=== PATIENT | male | born 1965 | race Caucasian/White ===

== ENCOUNTER 2021-09-02 20:37 | Emergency (ER) | payer MEDICAID, OTHER ==
[~2021-09-02] VITALS: Ht 172.7 cm; Wt 77.1 kg
[~2021-09-02 20:37] MED LIST: ASPI-610 PO
--- NOTE | 2021-09-02 21:24 | NUR ---
pt placed in room 4a states he is sucidial. states he wants to take benadryl and sleeping pills. notified housekeeping aid, she states there is no sitter available.
--- NOTE | 2021-09-02 22:06 | NUR ---
Dr. El at bedside for MSE.
[2021-09-02] MEDS ORDERED: THIAMINE HCL 100 MG TABLET PO ONE (22:15)
[2021-09-02 22:20] LABS: *BILIRUBIN,URIN NEGATIVE (NEGATIVE); *BLOOD, URINE NEGATIVE (NEGATIVE); *CLARITY,URINE CLEAR (CLEAR); *COLOR,URINE YELLOW (YELLOW); *KETONES,URINE NEGATIVE (NEGATIVE); *UROBILINOGEN,URINE 0.2 E.U./dl (NORMAL); LEUKOCYTE ESTERASE ,URINE NEGATIVE (NEGATIVE); NITRITE, URINE NEGATIVE (NEGATIVE); PH,URINE 5.5 (5.0-8.0); UGLUCOSE NEGATIVE (NEGATIVE)
[2021-09-02 22:20] LABS: HEMATOCRIT 43.5 % (36.7-47.1); MEAN CORPUSCULAR HEMOGLOBIN 30.2 uug (23.8-33.4); MEAN CORPUSCULAR VOLUME 87.3 fL (73.0-96.2); PLATELET COUNT (AUTO) 402 K/uL (152-348)
[2021-09-02 22:23] LABS: CARBON DIOXIDE 23 mmol/L (21-32); CHLORIDE 101 mmol/L (98-107); CREATININE 0.9 mg/dL (0.6-1.3); GLUCOSE 102 mg/dL (74-106); POTASSIUM 3.9 mmol/L (3.5-5.1); UREA NITROGEN, BLOOD 13 mg/dL (7-18)
[2021-09-02 22:35] LABS: ALANINE AMINOTRANSFERASE 71 U/L (16-63); ALKALINE PHOSPHATASE 88 U/L (50-136); ASPARTATE AMINOTRANSFERASE 50 U/L (15-37); BILIRUBIN,DIRECT 0.1 mg/dL (0.0-0.2); BILIRUBIN,TOTAL 0.2 mg/dL (0.2-1.0); TOTAL PROTEIN, SERUM 7.9 g/dL (6.4-8.2)
[2021-09-02 22:36] LABS: ACETAMINOPHEN < 2.0 ug/mL (10-30)
[2021-09-02] MEDS ORDERED: THIAMINE HCL 100 MG TABLET ONE (23:03)
--- NOTE | 2021-09-02 23:15 | NUR ---
pt a/o cooperative denies pain.
--- NOTE | 2021-09-02 23:31 | NUR ---
call to [facility], states she will call back in 30 minutes after blood alcohol level is available.
[2021-09-02 23:41] LABS: ETHANOL 214 MG/DL (0-0)
[2021-09-02 23:43] LABS: *AMPHETAMINE, URINE NEGATIVE (NEGATIVE); *CANNABINOID, URINE NEGATIVE (NEGATIVE); *COCCAINE, URINE NEGATIVE (NEGATIVE); *OPIATE, URINE NEGATIVE (NEGATIVE); *PHENCYCLIDINE SCREEN,URINE NEGATIVE (NEGATIVE)
--- NOTE | 2021-09-03 00:03 | NUR ---
Notified [facility] crisis nurse of blood alcohol level.
[2021-09-03] MEDS ORDERED: CHLORDIAZEPOXIDE HCL 25 MG CAPSULE PO ONE ×2 (00:45→02:00)
--- NOTE | 2021-09-03 01:25 | NUR ---
[employer] [employer] team member checked for librium, none is available. Dr. El is aware.
[2021-09-03] MEDS ORDERED: CHLORDIAZEPOXIDE HCL 5 MG CAPSULE ONE (01:48)
--- NOTE | 2021-09-03 06:14 | NUR ---
pt has been closely observed, has slept most of the night. Spoke with [facility] nurse she states she will be here in 5 minutes.
--- NOTE | 2021-09-03 06:39 | NUR ---
[facility] nurse at bedside.
[2021-09-03] MEDS ORDERED: OLANZAPINE 5 MG TABLET PO ONE (07:00)
[2021-09-03] MEDS ORDERED: diphenhydrAMINE 25 MG CAP PO ONE ×2 (07:00→08:04)
[2021-09-03] MEDS ORDERED: OLANZAPINE 5 MG TABLET ONE (08:04)
--- NOTE | 2021-09-03 08:13 | NUR ---
Pt ambulated to restroom and received breakfast tray upon return to bed. Pt aware of plan to possibly admit to [facility], but will require updated lab results. Pt agrees.
[2021-09-03 08:39] LABS: ETHANOL < 3 MG/DL (0-0)
--- NOTE | 2021-09-03 10:09 | NUR ---
Jade from [facility] admitting, received updates labs, now requesting documentation of pt being medically cleared. Continues to work toward admitting pt. Pt aware of plan. Continues to state being comfortable and denies any pain at this time.
--- NOTE | 2021-09-03 13:02 | NUR ---
Accepting is Dr. Negrete for [facility]. # for report is [phone]. ETA for knot picker cloth is 3070. Information provided by
--- NOTE | 2021-09-03 13:11 | NUR ---
Report give to Zaheer stephenson [facility].
--- NOTE | 2021-09-03 14:52 | NUR ---
Pt continues to rest without complaint of pain or discomfort, awaiting transport to [facility].
--- NOTE | 2021-09-03 15:10 | NUR ---
Pt ambulated out accompanied by transport personnel, out to the vehicle, with his belongings in hand. Pt stable at time of D/C.
[2021-09-03 15:19] VITALS: BP 134/88
== END 2021-09-03 15:10 | disposition short-term general hospital (02) ==
LOC: ER 20:46
DX: F10.129 Alcohol abuse with intoxication, unspecified (principal); R45.851 Suicidal ideations; R74.01 Elevation of levels of liver transaminase levels; J45.909 Unspecified asthma, uncomplicated; F17.290 Nicotine dependence, other tobacco product, uncomplicated; Z88.8 Allergy status to other drugs, medicaments and biological substances; Z59.00 Homelessness unspecified; Z79.82 Long term (current) use of aspirin; Z20.822 Contact with and (suspected) exposure to COVID-19; Y90.0 Blood alcohol level of less than 20 mg/100 ml
CPT/HCPCS: 36415 ×2; 80048; 80076; 80299; 80307; 80320 ×2; 81003; 83735; 85025; 87426; 99285; Q0163; A4663; G0480; J8499

== ENCOUNTER 2023-06-04 01:56 | Emergency (ER) | payer MEDICAID ==
[~2023-06-04] VITALS: Ht 175.3 cm; Wt 83.9 kg
[2023-06-04] MEDS ORDERED: ASPIRIN 81 MG TAB.CHEW PO ONE (02:15)
[2023-06-04] MEDS ORDERED: buPROPion XL 150 MG TAB.SR.24H PO SCH (02:15)
[2023-06-04] MEDS ORDERED: NITROGLYCERIN OINT 1 GM PACKET TP ONE ×2 (02:15→02:25)
[2023-06-04] MEDS ORDERED: ASPIRIN 81 MG TAB.CHEW ONE (02:25)
[2023-06-04 02:26] LABS: BASOPHILS % (AUTO) 0.7 % (0.0-2.0); EOSINOPHILS # (AUTO) 0.3 K/uL (0.0-0.7); EOSINOPHILS % (AUTO) 6.4 % (0.0-7.0); LYMPHOCYTES # (AUTO) 1.8 K/uL (0.8-4.8); LYMPHOCYTES % (AUTO) 35.1 % (20.5-51.5); MEAN CORPUSCULAR HEMOGLOBIN 31.4 uug (23.8-33.4); MEAN CORPUSCULAR HGB CONC 35 g/dL (32.5-36.3); MEAN CORPUSCULAR VOLUME 90.7 fL (73.0-96.2); MONOCYTES # (AUTO) 0.2 K/uL (0.1-1.30); MONOCYTES % (AUTO) 4.7 % (0.0-11.0); NEUTROPHILS # (AUTO) 2.8 K/uL (1.8-8.9); NEUTROPHILS % (AUTO) 53.1 % (38.5-71.5); PLATELET COUNT (AUTO) 335 K/uL (152-348); RED CELL DISTRIBUTION WIDTH 14.2 % (12.1-16.2); WHITE BLOOD COUNT (AUTO) 5.2 K/uL (3.6-10.2)
[2023-06-04 02:30] VITALS: BP 143/78
[2023-06-04 02:35] LABS: DIFFERENTIAL COMMENT 1
[2023-06-04 02:40] LABS: CALCIUM 9.1 mg/dL (8.5-10.1); CARBON DIOXIDE 26 mmol/L (21-32); CHLORIDE 103 mmol/L (98-107); CREATININE 0.9 mg/dL (0.6-1.3); GLUCOSE 108 mg/dL (74-106); POTASSIUM 4.1 mmol/L (3.5-5.1); SODIUM SERUM 140 mmol/L (136-145); UREA NITROGEN, BLOOD 12 mg/dL (7-18)
[2023-06-04 02:52] LABS: ETHANOL 236 MG/DL (0-10)
[2023-06-04 02:53] LABS: ALANINE AMINOTRANSFERASE 107 U/L (16-63); ALBUMIN 3.8 g/dL (3.4-5.0); ALKALINE PHOSPHATASE 68 U/L (50-136); ASPARTATE AMINOTRANSFERASE 76 U/L (15-37); BILIRUBIN,DIRECT 0.1 mg/dL (0.0-0.2); BILIRUBIN,TOTAL 0.3 mg/dL (0.2-1.0); NT-PRO BNP 7 pg/mL (0-125); TOTAL PROTEIN, SERUM 8.4 g/dL (6.4-8.2)
[2023-06-04 03:31] LABS: ACETAMINOPHEN < 2.0 ug/mL (10-30)
[2023-06-04 03:46] LABS: *AMPHETAMINE, URINE NEGATIVE (NEGATIVE); *BARBITURATE, URINE NEGATIVE (NEGATIVE); *BENZODIAZEPINE, URINE NEGATIVE (NEGATIVE); *CANNABINOID, URINE NEGATIVE (NEGATIVE); *COCCAINE, URINE NEGATIVE (NEGATIVE); *OPIATE, URINE NEGATIVE (NEGATIVE); *PHENCYCLIDINE SCREEN,URINE NEGATIVE (NEGATIVE); FENTANYL, URINE NEGATIVE (NEGATIVE)
[2023-06-04 07:26] VITALS: O2SAT 98
[2023-06-04 09:50] LABS: ETHANOL < 3 MG/DL (0-10)
== END 2023-06-04 11:57 ==
LOC: ER 01:59
DX: F32.A Depression, unspecified (principal); R07.89 Other chest pain; F10.129 Alcohol abuse with intoxication, unspecified; J45.909 Unspecified asthma, uncomplicated; F17.210 Nicotine dependence, cigarettes, uncomplicated; Z71.6 Tobacco abuse counseling; Z91.148 Patient's other noncompliance with medication regimen for other reason; Z59.00 Homelessness unspecified; Z88.8 Allergy status to other drugs, medicaments and biological substances; Z79.82 Long term (current) use of aspirin; Z20.822 Contact with and (suspected) exposure to COVID-19; Y90.7 Blood alcohol level of 200-239 mg/100 ml
CPT/HCPCS: 36415; 71045; 84484; 85025; 93005; G0480